=== PATIENT | male | born 1985 | race Caucasian/White ===

== ENCOUNTER 2023-11-04 19:10 | Emergency (ER) | payer SELFPAY ==
[~2023-11-04] VITALS: Ht 170.2 cm; Wt 80.3 kg
[2023-11-04 19:17] VITALS: BP 100/68; PULSE 75; RESP 18; TEMP 96.4; O2SAT 98
[2023-11-04] MEDS ORDERED: KETOROLAC 60 MG/2 ML VIAL IM ONE (19:35)
[2023-11-04] MEDS ORDERED: ACET-8905 PO (19:45)
[2023-11-04] MEDS ORDERED: DOCU-299 PO (19:45)
[2023-11-04] MEDS ORDERED: HYDR-2734 TP (19:46)
== END 2023-11-04 19:52 | disposition home or self-care (01) ==
LOC: MED 19:10
DX: K64.4 Residual hemorrhoidal skin tags (principal); F17.200 Nicotine dependence, unspecified, uncomplicated; Z79.899 Other long term (current) drug therapy
CPT/HCPCS: 96372; 99283; J1885